=== PATIENT | male | born 1935 | race Caucasian/White ===

== ENCOUNTER 2020-12-06 09:38 | Outpatient (REF) | payer MEDICARE, SELFPAY ==
[2020-12-06 11:19] LABS: Hematocrit 41.9 % (42-52); Hemoglobin 13.6 g/dl (14.0-18.0); Mean Corpuscular HGB Conc 32.5 g/dl (31.0-36.0); Mean Corpuscular Hemoglobin 31.3 pg (27.0-33.0); Mean Corpuscular Volume 96.3 fL (80-98); Mean Platelet Volume 11.5 fL (9.4-12.4); Platelet Count 218 X10*3/uL (160-400); Red Blood Count 4.35 X10*6/uL (4.60-5.80); Red Cell Distribution Width 12.3 % (11.0-16.0); White Blood Count 4.1 X10*3/uL (4.8-10.8)
[2020-12-06 12:06] LABS: Alanine Aminotransferase 18 U/L (0-40); Albumin Level 4.2 g/dL (3.5-5.0); Alkaline Phosphatase 56 U/L (39-117); Anion Gap 12 (12-20); Aspartate Amino Transferase 21 U/L (5-37); Blood Urea Nitrogen 22 mg/dL (9-16); Calcium 8.8 mg/dL (8.4-10.2); Carbon Dioxide 31 mmol/L (22-29); Chloride 102 mmol/L (96-108); Cholesterol 272 mg/dL; Estimated Glomerular Filt Rate > 60; Glucose Fasting 88 mg/dL (60-99); HDL Cholesterol 49 mg/dL; LDL Cholesterol Calculated 199 mg/dl; Potassium 4.5 mmol/L (3.3-5.1); Sodium 140 mmol/L (135-145); Total Protein 6.6 g/dL (6.5-8.0); Triglycerides 123 mg/dL
== END 2020-12-06 09:39 | disposition home or self-care (01) ==
LOC: HO.MANLDS 09:38
PROVIDERS: PCP Internal Medicine; Visit Provider Internal Medicine
DX: E78.00 Pure hypercholesterolemia, unspecified (principal)
CPT/HCPCS: 36415; 80053; 80061; 85027

== ENCOUNTER 2022-03-11 14:15 | Outpatient (REF) | payer MEDICARE, SELFPAY ==
[2022-03-11 18:18] LABS: MANUAL DIFF FLAG NO
[2022-03-11 18:21] LABS: Basophils Percent Auto 0.3 % (0-2); Eosinophils Absolute Auto 0.1 X10*3/uL (0.0-0.4); Eosinophils Percent Auto 3.4 % (0-4); Hematocrit 40.1 % (42.0-52.0); Imm Gran Abs Auto 0.01 X10*3/uL (0.00-0.03); Imm Gran Pct Auto 0.3 % (0.0-0.4); Lymphocytes Absolute Auto 0.7 X10*3/uL (1.2-4.9); Lymphocytes Percent Auto 22.4 % (20-40); Mean Corpuscular HGB Conc 32.4 g/dl (31.0-36.0); Mean Corpuscular Hemoglobin 31.2 pg (27.0-33.0); Mean Corpuscular Volume 96.2 fL (80.0-98.0); Mean Platelet Volume 11.3 fL (9.4-12.4); Monocytes Absolute Auto 0.6 X10*3/uL (0.1-1.2); Monocytes Percent Auto 18.1 % (2-11); Neutrophils Absolute Auto 1.8 x10*3/uL (2.0-8.3); Neutrophils Percent Auto 55.5 % (45-73); Platelet Count 209 X10*3/uL (160-400); Red Blood Count 4.17 X10*6/uL (4.60-5.80); Red Cell Distribution Width 12.5 % (11.0-16.0); White Blood Count 3.3 X10*3/uL (4.8-10.8)
[2022-03-11 18:33] LABS: Alanine Aminotransferase 19 U/L (0-40); Alkaline Phosphatase 59 U/L (39-117); Anion Gap 12 (12-20); Aspartate Amino Transferase 24 U/L (5-37); Bilirubin Total 0.3 mg/dL (0.0-1.0); Blood Urea Nitrogen 24 mg/dL (9-16); Calcium 9.1 mg/dL (8.4-10.2); Carbon Dioxide 28 mmol/L (22-29); Chloride 105 mmol/L (96-108); Estimated Glomerular Filt Rate 57; Glucose Random 93 mg/dL (60-115); Potassium 4.6 mmol/L (3.3-5.1); Sodium 140 mmol/L (135-145); Total Protein 6.8 g/dL (6.5-8.0)
[2022-03-11 18:54] LABS: Thyroid Stimulating Hormone 2.82 uIU/mL (0.32-4.0)
[2022-03-12 05:16] LABS: Estimated Average Glucose 111 mg/dL; Hemoglobin A1c % 5.5 %
[2022-03-12 05:57] LABS: Vitamin B12 527 pg/mL (200-900)
== END 2022-03-11 14:16 | disposition home or self-care (01) ==
LOC: HO.MANLDS 14:15
PROVIDERS: PCP Internal Medicine; Visit Provider Internal Medicine
DX: R73.01 Impaired fasting glucose (principal); E03.9 Hypothyroidism, unspecified
CPT/HCPCS: 36415; 80053; 82306; 82607; 83036; 84443; 85025

== ENCOUNTER 2023-09-02 10:23 | Outpatient (REF) | payer MEDICARE, SELFPAY | END 2023-09-02 10:24 | disposition home or self-care (01) | LOC: HO.MANLDS 10:23 | PROVIDERS: Visit Provider Internal Medicine | DX: E03.9 Hypothyroidism, unspecified (principal) | CPT/HCPCS: 36415; 84443 ==

== ENCOUNTER 2023-12-02 11:43 | Outpatient (REF) | payer MEDICARE, SELFPAY ==
[2023-12-02 14:52] LABS: MANUAL DIFF FLAG NO
[2023-12-02 15:04] LABS: Basophils Percent Auto 0.7 % (0-2); Eosinophils Absolute Auto 0.2 X10*3/uL (0.0-0.4); Eosinophils Percent Auto 3.8 % (0-4); Hematocrit 40.9 % (42.0-52.0); Hemoglobin 13.1 g/dl (14.0-18.0); Imm Gran Abs Auto 0.02 X10*3/uL (0.00-0.03); Imm Gran Pct Auto 0.5 % (0.0-0.4); Lymphocytes Absolute Auto 0.9 X10*3/uL (1.2-4.9); Lymphocytes Percent Auto 19.7 % (20-40); Mean Corpuscular Volume 96.9 fL (80.0-98.0); Mean Platelet Volume 11.2 fL (9.4-12.4); Monocytes Absolute Auto 0.5 X10*3/uL (0.1-1.2); Monocytes Percent Auto 11.3 % (2-11); Neutrophils Absolute Auto 2.8 x10*3/uL (2.0-8.3); Platelet Count 264 X10*3/uL (160-400); Red Blood Count 4.22 X10*6/uL (4.60-5.80); Red Cell Distribution Width 12.6 % (11.0-16.0); White Blood Count 4.4 X10*3/uL (4.8-10.8)
[2023-12-02 15:18] LABS: Estimated Average Glucose 105 mg/dL; Hemoglobin A1c % 5.3 % (<6.0)
[2023-12-02 15:38] LABS: Iron 110 mcg/dL (45-160); Percent Iron Saturation 48 % (15-50); Total Iron Binding Capacity 231 mcg/dL (228-428); Unsaturated Iron Binding 121 ug/dL
[2023-12-02 15:44] LABS: Ferritin 297 ng/mL (20-250); Thyroid Stimulating Hormone 3.63 uIU/mL (0.32-4.0)
== END 2023-12-02 11:44 | disposition home or self-care (01) ==
LOC: HO.MANLDS 11:43
PROVIDERS: Visit Provider Internal Medicine
DX: D64.9 Anemia, unspecified (principal); E03.9 Hypothyroidism, unspecified; R73.01 Impaired fasting glucose
CPT/HCPCS: 36415; 82728; 83036; 83540; 84443; 85025

== ENCOUNTER 2024-09-14 09:20 | Outpatient (REF) | payer MEDICARE, SELFPAY ==
[2024-09-14 13:43] LABS: MANUAL DIFF FLAG NO
[2024-09-14 13:48] LABS: Basophils Percent Auto 0.9 % (0-2); Eosinophils Absolute Auto 0.2 X10*3/uL (0.0-0.4); Eosinophils Percent Auto 4.3 % (0-4); Imm Gran Abs Auto 0.01 X10*3/uL (0.00-0.03); Imm Gran Pct Auto 0.2 % (0.0-0.4); Lymphocytes Absolute Auto 1.1 X10*3/uL (1.2-4.9); Lymphocytes Percent Auto 25.7 % (20-40); Mean Corpuscular HGB Conc 32.5 g/dl (31.0-36.0); Mean Corpuscular Hemoglobin 31.4 pg (27.0-33.0); Mean Corpuscular Volume 96.6 fL (80.0-98.0); Mean Platelet Volume 11.3 fL (9.4-12.4); Monocytes Absolute Auto 0.6 X10*3/uL (0.1-1.2); Monocytes Percent Auto 13.2 % (2-11); Neutrophils Absolute Auto 2.4 x10*3/uL (2.0-8.3); Neutrophils Percent Auto 55.7 % (45-73); Platelet Count 222 X10*3/uL (160-400); Red Blood Count 4.14 X10*6/uL (4.60-5.80); Red Cell Distribution Width 12.9 % (11.0-16.0); White Blood Count 4.4 X10*3/uL (4.8-10.8)
[2024-09-14 14:18] LABS: Iron 73 mcg/dL (45-160); Percent Iron Saturation 32 % (15-50); Total Iron Binding Capacity 225 mcg/dL (228-428); Unsaturated Iron Binding 152 ug/dL
[2024-09-14 14:35] LABS: Ferritin 282 ng/mL (20-250)
== END 2024-09-14 09:21 | disposition home or self-care (01) ==
LOC: HO.MANLDS 09:20
PROVIDERS: Visit Provider Internal Medicine
DX: D50.9 Iron deficiency anemia, unspecified (principal)
CPT/HCPCS: 36415; 82728; 83540; 85025

== ENCOUNTER 2025-03-22 10:54 | Outpatient (REF) | payer MEDICARE, SELFPAY ==
--- OUTSIDE RECORDS SUMMARY | 2025-03-22 12:10 | XMS_ITS | Data Portability ---
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 MUST MEET 2 OUT OF 3 ELEMENTS: PROBLEMS, DATA OR RISK ELEMENT 1: PROBLEMS 1 OR MORE CHRONIC ILLNESS W/SEVERE EXACERBATION, PROGRESSION MAY REQUIRE HOSPITAL LEVEL CARE OR 1 ACUTE OR CHRONIC ILLNESS OR INJURY THAT POSES A THREAT TO LIFE OR BODILY FUNCTION ELEMENT 2: DATA: MUST MEET 2 OF 3 CATEGORIES CATEGORY 1 REVIEW OF PRIOR EXTERNAL NOTES REVIEW OF THE RESULTS ORDERING OF EACH TEST ASSESSMENT REQUIRING INDEPENDENT HISTORIAN(S) CATEGORY 2: INDEPENDENT INTERPRETATION OF TESTS BY ANOTHER PROVIDER/SPECIALI ST CATEGORY 3: DISCUSSION OF MGT OR TEST INTERPRETATION W/EXTERNAL PHYSICIAN/SPECIAL IST ELEMENT 3: RISK HIGH RISK OF MORBIDITY FROM ADDITIONAL DIAGNOSTIC TESTING OR TREATMENT PROVIDER MUST THOROUGHLY DOCUMENT EACH ELEMENT THAT IS COVERED Not available 03/11/2022 14:02:46 03/04/2023 03/04/2023 [id number] [place] [address]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 MEET 2 OUT OF 3 ELEMENTS: PROBLEMS, DATA OR RISK ELEMENT 1: PROBLEMS ADDRESSED 1 OR MORE CHRONIC ILLNESS WITH EXACERBATION OR 2 OR MORE STABLE CHRONIC ILLNESSES OR 1 UNDIAGNOSED NEW PROBLEM OR 1 ACUTE ILLNESS W/SYMPTOMS OR 1 ACUTE COMPLICATED INJURY ELEMENT 2: DATA MUST MEET 1 OF 3 CATEGORIES CATEGORY 1: REVIEW OF PRIOR EXTERNAL NOTES, REVIEW OF RESULTS, ORDERING OF EACH TEST, ASSESSMENT REQUIRING INDEPENDENT HISTORIAN OR CATEGORY 2: INDEPENDENT INTERPRETATION OF TESTS BY ANOTHER PHYSICIAN OR SPECIALIST OR CATEGORY 3: DISCUSSION OF MGT OR TEST INTERPRETATION W/EXTERNAL PHYSICIAN OR SPECIALIST ELEMENT 3: RISK RISK OF COMPLICATIONS AND/OR MORBIDITY OR MORTALITY OF PATIENT MANAGEMENT PROVIDER MUST THOROUGHLY DOCUMENT EACH ELEMENT THAT IS COVERED Not available 03/04/2023 14:37:12 10/31/2023 10/31/2023 [id number] [place] [address]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 MEET 2 OUT OF 3 ELEMENTS: PROBLEMS, DATA OR RISK ELEMENT 1: PROBLEMS ADDRESSED 1 OR MORE CHRONIC ILLNESS WITH EXACERBATION OR 2 OR MORE STABLE CHRONIC ILLNESSES OR 1 UNDIAGNOSED NEW PROBLEM OR 1 ACUTE ILLNESS W/SYMPTOMS OR 1 ACUTE COMPLICATED INJURY ELEMENT 2: DATA MUST MEET 1 OF 3 CATEGORIES CATEGORY 1: REVIEW OF PRIOR EXTERNAL NOTES, REVIEW OF RESULTS, ORDERING OF EACH TEST, ASSESSMENT REQUIRING INDEPENDENT HISTORIAN OR CATEGORY 2: INDEPENDENT INTERPRETATION OF TESTS BY ANOTHER PHYSICIAN OR SPECIALIST OR CATEGORY 3: DISCUSSION OF MGT OR TEST INTERPRETATION W/EXTERNAL PHYSICIAN OR SPECIALIST ELEMENT 3: RISK RISK OF COMPLICATIONS AND/OR MORBIDITY OR MORTALITY OF PATIENT MANAGEMENT PROVIDER MUST THOROUGHLY DOCUMENT EACH ELEMENT THAT IS COVERED Not available 10/31/2023 10:03:36 09/24/2024 09/24/2024 [address] [place] [address]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 MEET 2 OUT OF 3 ELEMENTS: PROBLEMS, DATA OR RISK ELEMENT 1: PROBLEMS ADDRESSED 1 OR MORE CHRONIC ILLNESS WITH EXACERBATION OR 2 OR MORE STABLE CHRONIC ILLNESSES OR 1 UNDIAGNOSED NEW PROBLEM OR 1 ACUTE ILLNESS W/SYMPTOMS OR 1 ACUTE COMPLICATED INJURY ELEMENT 2: DATA MUST MEET 1 OF 3 CATEGORIES CATEGORY 1: REVIEW OF PRIOR EXTERNAL NOTES, REVIEW OF RESULTS, ORDERING OF EACH TEST, ASSESSMENT REQUIRING INDEPENDENT HISTORIAN OR CATEGORY 2: INDEPENDENT INTERPRETATION OF TESTS BY ANOTHER PHYSICIAN OR SPECIALIST OR CATEGORY 3: DISCUSSION OF MGT OR TEST INTERPRETATION W/EXTERNAL PHYSICIAN OR SPECIALIST ELEMENT 3: RISK RISK OF COMPLICATIONS AND/OR MORBIDITY OR MORTALITY OF PATIENT MANAGEMENT PROVIDER MUST THOROUGHLY DOCUMENT EACH ELEMENT THAT IS COVERED Not available 09/24/2024 11:43:57 Plan of Treatment Reminders Order Date Submit Date Provider Last Modified By Organization Details Last Modified Time Details Appointments FOLLOW UP 15 2024 10:00A M DR WAHL Not available Not available Not available Lab lipid panel, blood 2023 024 [facility], [place], [address], 09/24/2024 11:45:44 CMP, serum or plasma 2023 024 [facility], [place], [address], 09/24/2024 11:45:44 TSH, serum or plasma 2023 024 [facility], [place], [address], 09/24/2024 11:45:44 CMP, serum or plasma 2022 023 [facility], [place], [address], 10/31/2023 09:53:49 hemoglobi n A1c, QN, blood 2022 023 [facility], [place], [address], 10/31/2023 09:53:49 TSH, serum or plasma 2022 023 [facility], [place], [address], 10/31/2023 09:53:22 CBC 2022 023 [facility], [place], [address], 12/03/2023 11:10:12 ferritin, serum or plasma 2022 023 [facility], [place], [address], 10/31/2023 09:53:22 iron + total iron-bind ing capacity (TIBC), serum 2022 023 [facility], [place], [address], 10/31/2023 09:53:22 HbA1c (hemoglob in A1c), blood 2021 022 [facility], [place], [address], 03/12/2022 11:12:58 CBC w/ auto diff 2021 [facility], [place], [address], 03/12/2022 11:12:57 CMP, serum or plasma 2021 [facility], [place], [address], 03/12/2022 11:12:57 vitamin D, 25-hydrox y, total, serum 2021 [facility], [place], [address], 03/12/2022 11:12:57 vitamin B12, serum 2021 [facility], [place], [address], 03/12/2022 11:12:57 TSH, serum or plasma 2021 [facility], [place], [address], 03/12/2022 11:12:58 Referral orthopedi c surgeon referral 2021 camila Coello MD, [address] [place] [address], [address], 03/18/2022 10:39:16 Procedures None recorded. Surgeries None recorded. Imaging None recorded. Medication Orders levothyro xine 50 mcg tablet 2020 [id number], [address] [place], [address], 11/06/2020 15:50:44 Patient TargetsNo targets recorded. Patient Instructions Encounter Date Encounter Id Patient Instructions Last Modified By Organization Details Last Modified Time 03/11/2022 [id number] prediabetes: car e instructions Not available 03/11/2022 14:01:01 hypothyroidism: care instructions Not available 03/11/2022 14:01:01 03/04/2023 [id number] hypothyroidism: care instructions Not available 03/04/2023 14:38:33 Reason for Referral Orthopedic Surgeon Referral for Bilateral acquired deformity of hands Referring Physician: Bernard Wahl, Internal Medicine, Encounter Date: 03/11/2022 Results Created Date Observation Date Name Description Value Unit Range Abnormal Flag Note LastModifiedBy Organization Detail LastModifiedTime Result Notes None recorded. 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 55820434700 742785 Active 2021 Bernard Wahl DO [address] [place] [address], [address], [facility] 2 13:49:45 Bursitis of left hip 556894182 Active 2021 Bernard Wahl [address], [address], [facility] 2 13:50:03 Iron deficien cy anemia 88256307 Active 2023 Bernard Wahl [address], [address], [facility] Internal [facility] 4 21:23:32 Hypercho lesterol emia 49491153 Active 2017 Christina mcdaniels [facility] 8 15:57:41 Anxiety 51523012 Active 2017 Tiburcio mcdaniels [facility] 8 15:58:05 History of depressi on 272498689 Active 2017 tiburcio mcdaniels [facility] Internal [facility] 8 15:58:19 Osteoart hritis 873037187 Active 2017 hands etc. 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, Thoracic hyperkyph osis and scoliosis with PT [facility] 8 16:00:24 Prostate specific antigen above referenc e range 145968078 Active 2017 [place] 8 16:01:43 Gastroes ophageal reflux disease 019047306 Active 2017 [facility] 8 16:01:51 Dysphagi a 33445073 Active 2017 esophagea l dysmotili ty (elizabeth) s/p dilated (shatzkir ing ) [facility] 8 16:05:19 Fatigue 85448481 Active 2017 [facility] 8 16:05:44 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 ) [facility] 8 16:12:56 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 38606068 Active 2017 [facility] 8 16:13:13 Degenera tion of lumbar interver tebral disc 36995659 Active 2017 [facility] 8 16:13:21 Disorder of lung 04028048 Active 2017 incidenta l stable post inflammat ory lung nodules 02/01/14 and 02/15/14 [facility] 8 16:14:23 Hypothyr oidism 58742750 Active 2017 Christina mcdaniels [facility] Internal [facility] 8 16:14:32 Anemia 894593402 Active 2017 Christina mcdaniels [facility] 8 16:14:40 Problem Notes None recorded. Procedures Surgical History Date Name Laterality Status Provider Name and Address Organization Details Recorded Time 018 Colonoscopy completed Christina Noriega [facility] 10/09/2018 08:38:14 018 Corticosteroid Injection completed Bernard Wahl, DO [address] [place] [address], [place], [address], [facility] 10/02/2018 12:31:53 Imaging Results None recorded. Procedure Notes None recorded. Medical Equipment None Reported. Allergies No known drug allergies Medications Name Sig Start Date Stop Date Status Note LastModified by Organization Details LastModified Time amoxicilli n 500 mg capsule 11/06 completed Not Available Not Available Not Available pravastati n 40 mg tablet TAKE 1 TABLET BY MOUTH EVERY DAY 09/06 completed Not Available Not Available Not Available citalopram 10 mg tablet TAKE 1 TABLET BY MOUTH EVERY DAY active Not Available Not Available No t Available omeprazole 40 mg capsule,de layed release 03/25 completed Not Available Not Available Not Available Zantac 150 mg tablet Take 1 tablet every day by oral route. 09/09 completed Not Available Not Available Not Available cefadroxil 500 mg capsule 10/06 completed Not Available Not Available Not Available alprazolam 0.25 mg tablet Take 1 tablet 3 times a day by oral route as needed. active has never neededr x'd by psych doctor Not Available Not Available Not Available Vitamin C 1,000 mg tablet Take 1 tablet every day by oral route. active Not Available Not Available No t Available pravastati n 10 mg tablet TAKE 1 TABLET BY MOUTH EVERY DAY active Not Available Not Available No t Available temazepam 15 mg capsule 09/06 completed Not Available Not Available Not Available tamsulosin 0.4 mg capsule TAKE 1 CAPSULE BY MOUTH EVERYDAY AT BEDTIME active Not Available Not Available No t Available dicyclomin e 20 mg tablet take 1 tablet by mouth four times a day as needed for pain 09/09 completed Not Available Not Available Not Available temazepam 30 mg capsule TK 1 C PO QD active Not Available Not Available No t Available doxycyclin e monohydrat e 100 mg capsule PLEASE SEE ATTACHED FOR DETAILED DIRECTIO NS active Not Available Not Available No t Available levothyrox ine 50 mcg tablet TAKE 1 TABLET BY MOUTH EVERY DAY active Not Available Not Available No t Available omeprazole 20 mg capsule,de layed release 40mg qd active Not Available Not Available Not Available mupirocin 2 % topical ointment 10/06 completed Not Available Not Available Not Available celecoxib 100 mg capsule TAKE 1 CAPSULE BY MOUTH TWICE A DAY NEEDED active Not Available Not Available No t Available oxycodone 5 mg tablet TAKE 0.5-1 TABLETS BY MOUTH EVERY 6 (SIX) HOURS NEEDED FOR MODERATE PAIN OR 4-6 active Not Available Not Available No t Available bupropion HCl SR 200 mg tablet,12 hr sustained- release TAKE 1 TABLET BY MOUTH TWICE A DAY active Not Available Not Available No t Available Iron (dried) 160 mg (50 mg iron) tablet,ext ended release Take 1 tablet every day by oral route. 10/31 completed Not Available Not Available Not Available psyllium active Not Available Not Avai lable Not Available FiberCon active Not Available Not Avai lable Not Available Miralax active Not Available Not Avail able Not Available multivitam in 1 po qd active Not Available Not Available Not Available Amitiza 24 mcg capsule 1 cap BID 02/10 completed Not Available Not Available Not Available Aller-Salomon 10 mg tablet Take 1 tablet every day by oral route. active Not Available Not Available No t Available Amitiza 8 mcg capsule Take 1 capsule twice a day by oral route for 30 days. 03/11 completed Not Available Not Available Not Available GaviLyte-G 236 gram-22.74 gram-6.74 gram-5.86 gram oral solution 02/10 completed Not Available Not Available Not Available Allergy Relief (fluticaso ne) 50 mcg/actuat ion nasal spray,susp ension [place] 2 sprays every day by intranas al route. active Not Available Not Available No t Available Linzess 72 mcg capsule 03/11 completed Not Available Not Available Not Available Fluad Quad 0280-9582( 65yr up)(PF) 60 mcg (15 mcg x 4)/0.5mL IM syringe PHARMACY ADMINIST ERED 11/06 completed Not Available Not Available Not Available Vitals Date Recorded Body height Body mass index (BMI) Body weight Body temperature Heart rate Oxygen saturation Oxygen saturation in Arterial blood by Pulse oximetry Systolic blood pressure Diastolic blood pressure Provider Name and Address Organization Details Last Updated DateTime 1 169.55 cm 24.2 kg/m2 15842.9 9 g 96.9 [degF] 77 /min 98 % 98 % 132 mm[Hg] 86 mm[Hg] Nilda [facility] 1 15:28:59 Date Recorded Body weight Heart rate Oxygen saturation Oxygen saturation in Arterial blood by Pulse oximetry Systolic blood pressure Diastolic blood pressure Provider Name and Address Organization Details Last Updated DateTime 2 13010.0 4 g 74 /min 100 % 100 % 130 mm[Hg] 82 mm[Hg] Bernard Wahl, DO [address] [place], [address] [place] [address] Internal [facility] 2 13:35:03 Date Recorded Body height Body mass index (BMI) Body weight Oxygen saturation Oxygen saturation in Arterial blood by Pulse oximetry Heart rate Systolic blood pressure Diastolic blood pressure Provider Name and Address Organization Details Last Updated DateTime 3 170.18 cm 23.3 kg/m2 12954.2 6 g 95 % 95 % 76 /min 120 mm[Hg] 72 mm[Hg] Donita Diego [facility] 3 14:02:58 Date Recorded Body height Body mass index (BMI) Body weight Systolic blood pressure Diastolic blood pressure Provider Name and Address Organization Details Last Updated DateTime 09/24/2024 170.18 cm 23.2 kg/m2 54131.67 g 110 mm[Hg] 80 mm[Hg] Donita [facility] 4 11:23:52 Social History Question Answer Notes LastModified by Organizat ion Details LastModified Time Tobacco Smoking Status Never Smoker Not Available [employer] 09/05/2020 03:36:24 What Was The Date Of Your Most Recent Tobacco Screening? 09/24/2024 [email or web address] Information not available 09/24/2024 Sex: Unknown Functional Status None recorded. Mental Status None recorded. Family History Nothing Reported. Medical History No medical history recorded. Immunizations Vaccine Type Date Status Note Provider Nam e and Address Organization Details Recorded Time COVID-19, mRNA, LNP-S, PF, 30 mcg/0.3 mL dose 1 completed Not Available [facility] 04/22/2023 14:23:30 COVID-19, mRNA, LNP-S, PF, 30 mcg/0.3 mL dose 1 completed Not Available [facility] 04/22/2023 14:23:30 COVID-19, mRNA, LNP-S, PF, 30 mcg/0.3 mL dose 1 completed Not Available [facility] 04/22/2023 14:23:30 Td(adult) unspecified formulation 6 completed Not Available [facility] 04/22/2023 14:23:30 Pneumococcal conjugate PCV 13 5 completed Not Available [facility] 04/22/2023 14:23:30 zoster live 9 completed Not Available [facility] 04/22/2023 14:23:30 Influenza, split virus, quadrivalent, preservative 8 completed Not Available [facility] 04/22/2023 14:23:30 influenza, unspecified formulation 4 completed Bernard Wahl DO [address] [place] [address], [address], [facility] 09/24/2024 11:47:41 Influenza, split virus, quadrivalent, preservative 9 completed Not Available [facility] 04/22/2023 14:23:30 Influenza, split virus, quadrivalent, preservative 0 completed Not Available [facility] 04/22/2023 14:23:29 Past Encounters Encounter ID Performer Location Encounter Start Date Encounter Closed Date Diagnosis/Indication Diagnosis SNOMED-CT Code Diagnosis ICD10 Code Diagnosis Note [id number] Bernard Wahl DO [facility] [address] [facility],[place] [address] 03/25/2018 11:12:41 03/25/2018 11:51:10 Hypercholesterolemia 45012283 E78.00 Gastroesop hageal reflux disease 416704952 K21.9 Impaired f asting glycemia 988354586 R73.01 Hypothyroidism 16915002 E03.9 Anemia 297893570 D64.9 [id number] Bernard Wahl [facility] [address] [facility],[place] [address] 09/09/2018 08:54:24 09/09/2018 11:08:11 Adult health examination 937070997 Z00.00 health care proxy/ki bernal will - plan to update Anemia 974618811 D64.9 stable Impaired f asting glycemia 488140412 R73.01 stable a1c Hypothyroidism 51923003 E03.9 stable tsh Hypercholesterolemia 136 88063 E78.00 Prostate s pecific antigen above reference range 390676138 R97.20 [id number] Bernard Wahl [facility] Internal [facility] [address] [place] [address] 09/23/2018 11:50:44 09/28/2018 09:00:27 Pain of shoulder region 53565548 M25.519 believe this represents a rotator tendon injury will need and xray if pos [place] [id number] Bernard Wahl [facility] Internal [facility] [address] [place] [address] 10/02/2018 12:12:14 10/02/2018 16:02:54 Shoulder joint pain 462561336 M25.519 cortisone inject [facility] [id number] Bernard Wahl [facility] Internal [facility] [address] [place] [address] 02/10/2019 11:29:23 02/10/2019 12:05:15 Hypothyroidism 99026576 E03.9 needs tsh Lordosis d eformity of spine 65821944 M40.50 has noted arthritis but lives with it Osteoarthritis 851236861 M19.90 hands are particular ly bad but is coping Prostate s pecific antigen above reference range 420794509 R97.20 followed by urologist Strain of tendon of medial thigh muscle 946833505 S76.812A will need a refer to PT as this has persisted now for months and is not abating Impaired f asting glycemia 699390842 R73.01 [id number] [facility] [address] [facility] [address],[place] [address] 09/06/2019 10:39:06 09/06/2019 11:16:21 Impaired fasting glycemia 959410461 R73.01 will rechk lab Hypothyroidism 16988597 E03.9 needs tsh Anxiety 25467467 F41.9 seems to be stable and is doing ok Hypercholesterolemia 136 43210 E78.00 [place] the pravastat [place] chk [id number] Bernard Wahl [facility] [address] [facility] [address],[place] [address] 10/06/2019 11:40:47 10/06/2019 12:02:32 Hypothyroidism 04784543 E03.9 tsh is 2.9 Hypercholesterolemia 136 58615 E78.00 LDL climbed to 200 so we will restart the med albeit on a lower dosage for better tolerance Anxiety 86399403 F41.9 seems to be stable and is doing ok Anemia 944137622 D64.9 is rechecked and is now almost nack to nl with hgb of 13.7 and hct of 41.7 [id number] Bernard Wahl [facility] [address] [facility] [place] [address] 11/06/2020 15:23:34 11/06/2020 16:01:25 Hypothyroidism 83855987 E03.9 tsh is 2.9 last year Impaired f asting glycemia 683487864 R73.01 will rechk lab but no evidence of DM Hypercholesterolemia 136 94768 E78.00 we will stop the med and will rech the cholestero l Gastroesop hageal reflux disease 225586049 K21.9 stable on omeprazole Prostate s pecific antigen above reference range 124150054 R97.[address] mcgrath at this time [id number] Bernard Wahl [facility] [address] [facility] [address] [address] 03/11/2022 13:29:11 03/11/2022 15:28:19 Active or passive immunization 864750917 Z23 Disorder of lung 8916655 1 J98.4 stable and doing good overall Impaired f asting glycemia 563924605 R73.01 will rechk lab but no evidence of DM Hypothyroidism 83169028 E03.9 tsh is 2.9 last year Bilateral acquired deformity of hands 0871588318 5185510 M20.001 M20.002 given the severity we are not sure if this will be fixable Shoulder joint pain 2679 35654 M25.519 cortisone inject will be ordered [id number] Bernard Wahl [facility] [address] [facility] [address],[place] [employer] [facility] [address] 03/04/2023 13:52:41 03/04/2023 15:02:31 Hypothyroidism 94027278 E03.9 tsh is 2.9 last year rech lab next visit Anemia 324236522 D64.9 is rechecked and is now almost nack to nl with hgb of 13.7 and hct of 41.7we will rechk lab next time Bilateral acquired deformity of hands 3310322276 6251427 M20.001 M20.002 did great with the surgery [id number] Bernard Wahl [facility] [address] [facility],[place] [facility] [place] [address] 10/31/2023 08:01:08 10/31/2023 15:37:16 Anemia 612611533 D64.9 is rechecked and is now almost nack to nl with hgb of 13.7 and hct of 41.7we will rechk lab next time Hypercholesterolemia 136 50011 E78.00 we will stop the med and will rech the cholestero l Hypothyroidism 83755007 E03.9 tsh is 2.5 last octob rech lab next month Impaired f asting glycemia 319470328 R73.01 will rechk lab but no evidence of DM [id number] Bernard Wahl [facility] [address] [facility] [address],[place] [facility] [place] [address] 09/24/2024 11:15:41 09/24/2024 11:53:51 Hypercholesterolemia 84261593 E78.00 we will stop the med and will rech the cholestero l Depression screening 171 020567 Z13.31 neg anxious ryan with driving Hypothyroidism 03076604 E03.9 tsh is 2.5 last octob rech lab next month Impaired f asting glycemia 268779194 R73.01 will rechk lab but no evidence of DM Health Concerns Section Related Observation LastModified by Organization Detai ls LastModified Time None Recorded Concern Status LastModified by Organization Details LastModified Time None Recorded Advance Directives Directive None Recorded Payers Encounter Date Sequence Insurance Name Policy Number Policy Licona Covered Member ID Licona Member ID Guarantor Name 11/06/2020 1 [place] [employer] Kade Terrell [id number] Kade Terrell 11/06/2020 2 [place] [id number] Kade Terrell [id number] Kade Terrell 03/11/2022 1 [place] [employer] Kade Terrell [id number] Kade Terrell 03/11/2022 2 [place] [id number] Kade Terrell [id number] Kade Terrell 03/04/2023 1 [place] Kade Terrell [id number] 25 Kade Terrell 03/04/2023 2 [place] [id number] Kade Terrell [id number] Kade Terrell 10/31/2023 1 [place] Kade Terrell [id number] Kade Terrell 10/31/2023 2 [place] [id number] Kade Terrell [id number] Kade Terrell 09/24/2024 1 [place] Kade Terrell [id number] Kade Terrell 09/24/2024 2 [place] [id number] Kade Terrell [id number] Kade Terrell Notes Date Note Type Note Provider Name and Address Organization Details Recorded Time 11/06/19 21 text/htm l here for rechk and is doing ok wants to lose wgt relates that his thumbs have been a prblem with all the arthritis and deformity but does not want a referral no cp no sob bpwels ok bladder ok sleep is good Bernard Wahl, DO [address] [place], [address], [facility], operated by [facility] 11/06/2020 15:52:46 03/11/20 22 text/htm l here for rechk oif various issuesrelates is having some issues with his abdomen and bad gasrelates when he urinates he also passes and he feels it makes a mess at timesalso his right shoulder is bothering him latelyhe has not had a mikayla inj in a long timealso his hands are very uncomfortable and the degree of deformity is severe he is wondering if the amount of time procrastinating getting them fixed has placed him beyond repair Bernard WahlDO [address] [place], [address], [facility], operated [facility] 03/11/2022 14:02:50 03/04/20 23 text/htm l relates that he is doing good states his hand are doing well after the surgeryno cp no sobhas some issues with memoryarthritis has been a nuisance from time to time Bernard Wahl, [address] [place], [address], [facility], operated [facility] 03/04/2023 14:38:56 10/31/20 23 text/htm l AnemiaReported bypatient.Timing:better Associated Symptoms:no shortness of breath; no chest pain; no abdominal pain; no nausea; no vomiting; no melena; no blood in stool; no weakness; no fatigue; no palpitations; no excessive sweating; normal nails; tolerant of cold; no nonfood cravings; no behavior problems; no symptoms of peripheral neuropathy; normal balance; no jaundice; no pallor; no weight lossHypothyroidReported bypatient.Associated Symptoms:no weakness; no lightheadedness; no fatigue; no cold intolerance; no constipation; no weight gain; no involuntary weight loss; normal mood; no menstrual irregularity; no pain; no dry/coarse skin; no edema; no deepening of the voice; no hoarseness; no goiter; no mass detected; no chest pain; no palpitations Treatment:taking medication as directed patient is evaluated via tele/video assessment per patient consent during current pandemicrelates sleeps wellappetite goodbowels ok;has been more forgetful at times Bernard Wahl DO [address] [place], [address], [facility], [facility] 10/31/2023 10:04:40 09/24/20 24 text/htm l here for ompromptu welness check doing ok overall except for anxiety at times ryan in a car here for rechk and is feeling ok overallbut has been having a lot of trouble with word searchingstates that he gets too anxious to drive a carhis is driving Bernard Wahl DO [address] [place], [address], [facility], [facility] 09/24/2024 11:48:04
--- OUTSIDE RECORDS SUMMARY | 2025-03-22 12:10 | XMS_ITS | Data Portability ---
Author Organization [facility], , [facility] Address [address] [place] [address] Assessment Encounter Date Assessment Date Assessment LastModified by Organization Details LastModified Time 06/10/2017 06/10/2017 RTC 1 yr CEE or prn jmandile Not available 06/10/2017 10:57:21 06/15/2018 06/15/2018 RTC 1 yr CEE or prn jmandile Not available 06/15/2018 09:22:20 07/27/2019 07/27/2019 RTC 1 yr CEE or prn jmandile Not available 07/27/2019 09:36:46 05/31/2021 05/31/2021 RTC 1 yr CEE or prn jmandile Not available 06/05/2021 13:09:24 Plan of Treatment Reminders Order Date Submit Date Provider Last Modified By Organization Details Last Modified Time Details Appointments None record ed. Lab None record ed. Referral None record ed. Procedures None record ed. Surgeries None record ed. Imaging None record ed. Medication Orders None record ed. Patient TargetsNo targets recorded. Patient InstructionsNo instructions recorded. Reason for Referral None Reported. 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 Procedures Surgical History Date Name Laterality Status Provider Name and Address Organization Details Recorded Time 06/10/2017 Refraction completed Henny Kinglathasteffany [facility] 06/10/2017 10:11:26 04/08/2016 Refraction completed Ginger Vijay [facility] 04/08/2016 14:14:56 Imaging Results None recorded. Procedure Notes None recorded. Medical Equipment None Reported. Allergies No known drug allergies Medications Name Sig Start Date Stop Date Status Note LastModified by Organization Details LastModified Time amoxicillin 500 mg capsule TAKE 1 CAPSULE BY MOUTH EVERY 8 HOURS NEEDED UNTIL FINISHED active Not Available Not Available No t Available pravastatin 40 mg tablet active Not Available Not Available Not Available citalopram 10 mg tablet TAKE 1 TABLET BY MOUTH EVERY DAY active Not Available Not Available No t Available sertraline 100 mg tablet active Not Available Not Available Not Available ciprofloxac in 500 mg tablet 06/15 completed Not Available Not Available Not Available omeprazole 40 mg capsule,del ayed release active Not Available Not Available Not Available bupropion HCl SR 100 mg tablet,12 hr sustained-r elease 06/10 completed Not Available Not Available Not Available cefadroxil 500 mg capsule active Not Available Not Available Not Available alprazolam 0.25 mg tablet active Not Available Not Available Not Available pravastatin 10 mg tablet TAKE 1 TABLET BY MOUTH EVERY DAY active Not Available Not Available No t Available temazepam 15 mg capsule active Not Available Not Available Not Available tamsulosin 0.4 mg capsule TAKE 1 CAPSULE BY MOUTH EVERYDAY AT BEDTIME active Not Available Not Available No t Available dicyclomine 20 mg tablet active Not Available Not Available Not Available temazepam 30 mg capsule TK 1 C PO QD active Not Available Not Available No t Available doxycycline monohydrate 100 mg capsule PLEASE SEE ATTACHED FOR DETAILED DIRECTION S active Not Available Not Available No t Available levothyroxi ne 50 mcg tablet TAKE 1 TABLET BY MOUTH EVERY DAY active Not Available Not Available No t Available sertraline 25 mg tablet 06/10 completed Not Available Not Available Not Available omeprazole 20 mg capsule,del ayed release active Not Available Not Available Not Available mupirocin 2 % topical ointment active Not Available Not Available Not Available celecoxib 100 mg capsule TAKE 1 CAPSULE BY MOUTH TWICE A DAY NEEDED active Not Available Not Available No t Available fluticasone propionate 50 mcg/actuati on nasal spray,suspe nsion active Not Available Not Available Not Available sertraline 50 mg tablet active Not Available Not Available Not Available Pneumovax-2 3 25 mcg/0.5 mL injection syringe TO BE ADMINISTE RED BY PHARMACIS T FOR IMMUNIZAT ION 06/15 completed Not Available Not Available Not Available bupropion HCl SR 200 mg tablet,12 hr sustained-r elease TAKE 1 TABLET BY MOUTH TWICE A DAY active Not Available Not Available No t Available Boostrix Tdap 2.5 Lf unit-8 mcg-5 Lf/0.5 mL intramuscul ar syringe inject 0.5 millilite r intramusc ularly 06/15 completed Not Available Not Available Not Available Amitiza 24 mcg capsule active Not Available Not Available Not Available Amitiza 8 mcg capsule TAKE 1 CAPSULE TWICE DAILY FOR ORALLY 90 active Not Available Not Available No t Available GaviLyte-G 236 gram-22.74 gram-6.74 gram-5.86 gram oral solution active Not Available Not Available Not Available Prevnar 13 (PF) 0.5 mL intramuscul ar syringe TO BE ADMINISTE RED BY PHARMACIS T FOR IMMUNIZAT ION active Not Available Not Available No t Available Linzess 290 mcg capsule active Not Available Not Available Not Available Fluzone High-Dose 6678-5359 (PF) 180 mcg/0.5 mL intramuscul ar syringe TO BE ADMINISTE RED BY PHARMACIS T FOR IMMUNIZAT ION active Not Available Not Available No t Available Linzess 72 mcg capsule PLEASE SEE ATTACHED FOR DETAILED DIRECTION S active Not Available Not Available No t Available Fluad 2017- 65yr up(PF)45 mcg(15 mcgx3)/0.5 mL intramuscul ar syringe TO BE ADMINISTE RED BY PHARMACIS T FOR IMMUNIZAT ION active Not Available Not Available No t Available Vitals None Recorded Social History None recorded. Functional Status None recorded. Mental Status None recorded. Family History Nothing Reported. Medical History No medical history recorded. Past Encounters Encounter ID Performer Location Encounter Start Date Encounter Closed Date Diagnosis/Indication Diagnosis SNOMED-CT Code Diagnosis ICD10 Code Diagnosis Note [id number] [facility], [address] [address] 12/07/2008 13:13:50 12/08/2008 08:52:18 [id number] Cherelle Ally Saba, OD [facility], [address] [address] 04/08/2016 13:11:12 04/08/2016 15:05:29 Nuclear senile cataract 656787926 H25.13 Hypermetropia 36402810 H 52.02 Presbyopia 79156087 H52. 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 not bothersome to pt. discussed AT/WC, observe for now. Presbyopia 30095622 H52. 4 ok to cont with OTC readers [id number] Cherelle Saba, OD [facility], [address] [address] 06/15/2018 08:23:28 06/15/2018 09:19:56 Cortical senile cataract 52355729 H25.013 mild OU, stable, not affecting ADL's, pt does not drive, monitor 1 yr or sooner with vision changes. Blepharitis 38101615 H01 .9 not bothersome to pt. observe. Presbyopia 23806584 H52. 4 ok to cont with OTC readers [id number] Cherelle Saba, OD [facility], [address] [address] 07/27/2019 08:51:49 07/27/2019 09:40:23 Cortical senile cataract 47069814 H25.013 mild OU, stable, not affecting ADL's, pt does not drive, monitor 1 yr or sooner with vision changes. Blepharitis 67555924 H01 .9 pt ed. recommend hot compresses with lid massage 1x per day and Artificial tears 2-4 x per day. Presbyopia 91852457 H52. 4 ok to cont with OTC readers [id number] Cherelle Saba, OD [facility], [address] [address] 05/31/2021 10:59:26 05/31/2021 11:52:24 Cortical senile cataract 84298206 H25.013 mild OU, stable, not affecting ADL's, pt does not drive, monitor 1 yr or sooner with vision changes. Presbyopia 79466731 H52. 4 ok to cont with OTC readers [id number] Cherelle Saba, OD [facility], [facility] [address] [place] [address] 02/03/2024 14:11:58 02/09/2024 12:22:41 Cortical senile cataract 55085808 H25.013 mild OU, stable, not affecting ADL's, pt does not drive, recommend annual eye exams. Presbyopia 87995828 H52. 4 ok to cont with OTC readers Health Concerns Section Related Observation LastModified by Organization Detai ls LastModified Time None Recorded Concern Status LastModified by Organization Details LastModified Time None Recorded Advance Directives Directive None Recorded Payers Encounter Date Sequence Insurance Name Policy Number Policy Licona Covered Member ID [place]icon[place] Member ID Guarantor Name 06/10/2017 2 [place] [id number] Kade Terrell [id number] Kade Terrell 06/10/2017 1 [place] Kade Terrell [id number] Kade Terrell 06/15/2018 2 [place] [id number] Kade Terrell [id number] Kade Terrell 06/15/2018 1 [place] Kade Terrell [id number] Kade Terrell 07/27/2019 2 [place] [id number] Kade Terrell [id number] Kade Terrell 07/27/2019 1 [place] Kade Terrell [id number] Kade Terrell 05/31/2021 2 [place] [id number] Kade Terrell [id number] Kade Terrell 05/31/2021 1 [place] [facility] SERVICES Kade Terrell [id number] Kade Terrell 02/03/2024 2 [place] [id number] Kade Terrell [id number] Kade Terrell 02/03/2024 1 [place] [facility] Kade Terrell [id number] Kade Terrell Notes Date Note Type Note Provider Name and Address Organization Details Recorded Time 06/10/2017 text/html CataractReported bypatient.Location:bi lateral Quality:painless Severity:mild Onset/Timing:gradualN otes:mild blur at distance without glasses, sometimes, most of the time it is clear. Cherelle Saba, OD [address] [place] [address], [phone], [facility] 06/10/2017 10:57:39 06/15/2018 text/html CataractReported bypatient.Location:bi lateral Quality:painless Severity:mild Onset/Timing:gradual Cherelle Saba, OD [address] [place] [address], [address], [facility] 06/15/2018 09:23:25 07/27/2019 text/html CataractReported bypatient.Location:bi lateral Quality:painless Severity:mild Onset/Timing:gradual Context:decreased vision(at distance); when reading; watching tv; Pt no longer drives Modifying Factors:nothing improves Cherelle Saba, OD [address] [place] [address], [address], [facility] 07/27/2019 09:40:11 05/31/2021 text/html CataractReported bypatient.Location:bi lateral Quality:painless Severity:mild Onset/Timing:gradual Context:watching tv (seems blurrier at times) Modifying Factors:nothing improves Cherelle Saba, OD [address] [place] [address] [place], [address], [facility] 06/05/2021 13:10:06 02/03/2024 text/html CataractReported bypatient.Location:bi lateral Quality:painless Severity:mild Onset/Timing:gradual No Va complaints. not driving. Cherelle Saba, OD [address] [place] [address], [address], [facility] 02/03/2024 15:24:41
[2025-03-22 13:18] LABS: MANUAL DIFF FLAG NO
[2025-03-22 13:26] LABS: Basophils Percent Auto 0.5 % (0-2); Eosinophils Absolute Auto 0.1 X10*3/uL (0.0-0.4); Eosinophils Percent Auto 3.2 % (0-4); Hematocrit 37.4 % (42.0-52.0); Hemoglobin 12.3 g/dl (14.0-18.0); Imm Gran Abs Auto 0.01 X10*3/uL (0.00-0.03); Imm Gran Pct Auto 0.3 % (0.0-0.4); Lymphocytes Absolute Auto 0.7 X10*3/uL (1.2-4.9); Lymphocytes Percent Auto 19.4 % (20-40); Mean Corpuscular HGB Conc 32.9 g/dl (31.0-36.0); Mean Corpuscular Hemoglobin 31.1 pg (27.0-33.0); Mean Corpuscular Volume 94.7 fL (80.0-98.0); Mean Platelet Volume 11.1 fL (9.4-12.4); Monocytes Absolute Auto 0.4 X10*3/uL (0.1-1.2); Monocytes Percent Auto 9.6 % (2-11); Neutrophils Absolute Auto 2.5 x10*3/uL (2.0-8.3); Platelet Count 217 X10*3/uL (160-400); Red Blood Count 3.95 X10*6/uL (4.60-5.80); Red Cell Distribution Width 12.7 % (11.0-16.0); White Blood Count 3.8 X10*3/uL (4.8-10.8)
[2025-03-22 13:54] LABS: Iron 111 mcg/dL (45-160); Percent Iron Saturation 50 % (15-50); Total Iron Binding Capacity 222 mcg/dL (228-428); Unsaturated Iron Binding 111 ug/dL
[2025-03-22 14:11] LABS: Ferritin 268 ng/mL (20-250)
== END 2025-03-22 10:55 | disposition home or self-care (01) ==
LOC: HO.MANLDS 10:54
PROVIDERS: Visit Provider Internal Medicine
DX: D50.9 Iron deficiency anemia, unspecified (principal)
CPT/HCPCS: 36415; 82728; 83540; 85025

== ENCOUNTER 2025-08-05 12:03 | Outpatient (REF) | payer MEDICARE, SELFPAY ==
--- OUTSIDE RECORDS SUMMARY | 2025-08-05 12:58 | XMS_ITS | Encounter Summary ---
Author Organization [facility] Address [address] [facility] [address] [place] [address] Phone Care Team Providers Care Residential Remodeling Subcontractor Name Role Phone Bernard Araiza DO Primary Care Provider Encounter Details Date Type Department Care Team (Late st Contact Info) Description 09/29/2018 Ancillary Orders Virtual Department [address] [place] [address] Bernard Araiza DO [address] [place] [address] [email or web address] Shoulder pain, unspecified chronicity, unspecified laterality Social History Tobacco Use Types Packs/Day Years Used Date Smoking Tobacco: Never Assessed Sex and Gender Information Value Date Recorded Sex Assigned at Not on file Legal Sex Male 10:14 PM EDT Gender Identity Not on file Sexual Orientation Not on file documented as of this encounter Plan of Treatment Not on file documented as of this encounter Visit Diagnoses Diagnosis Shoulder pain, unspecified chronicity, unspecified laterality documented in this encounter Care Teams Residential Remodeling Subcontractor Relationship Specialty Start Date End Date Bernard Araiza DO PCP - General 11/06/17 documented as of this encounter Additional Source Comments The information contained in this document represents components of the legal health record. It is not the complete legal health record[facility]
--- OUTSIDE RECORDS SUMMARY | 2025-08-05 12:58 | XMS_ITS | Data Portability ---
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) [facility] MODERATE MUST MEET 2 OUT OF 3 [...] COVERED Not available 10/31/2023 10:03:36 09/24/2024 09/24/2024 [address] [place] [address] (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) [facility]DM MODERATE MUST MEET 2 OUT OF [...] THAT IS COVERED Not available 09/24/2024 11:43:57 03/23/2025 03/23/2025 [address] [place] [address] (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) MDM MODERATE MUST MEET 2 OUT OF [...] EACH ELEMENT THAT IS COVERED Not available 03/23/2025 10:25:42 08/05/2025 08/05/2025 [address] [place] [address] (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) MDM HIGH MUST MEET 2 OUT OF [...] EACH ELEMENT THAT IS COVERED Not available 08/05/2025 11:48:56 Plan of Treatment Reminders Order Date Submit Date Provider Last Modified By Organization Details Last Modified Time Details Appointments FOLLOW UP 15 2024 11:15A M DR WAHL Not available Not available Not available FOLLOW UP 15 2025 10:15A M DR WAHL Not available Not available Not available Lab TSH, serum or plasma 2024 025 [facility], [place], [address], 08/05/2025 11:53:19 CBC w/ auto diff 2024 025 [facility], [place], [address], 08/05/2025 11:53:18 iron + TIBC + ferritin, serum 2024 025 [facility], [place], [address], 08/05/2025 11:53:19 CMP, serum or plasma 2024 025 [facility], [place], [address], 08/05/2025 11:53:19 lipid panel, blood 2023 024 [facility], [place], [address], 09/24/2024 11:45:44 CMP, serum or plasma 2023 024 [facility], [place], [address], 09/24/2024 11:45:44 TSH, serum or plasma 2023 024 [facility], [place], [address], 09/24/2024 11:45:44 CMP, serum or plasma 2022 023 [facility], [place], [address], 10/31/2023 09:53:49 hemoglobi n A1c, QN, blood 2022 023 [facility], [place], [address], 10/31/2023 09:53:49 TSH, serum or plasma 2022 023 [facility], [place], [address], 10/31/2023 09:53:22 CBC 2022 023 [facility], [place], [address], 12/03/2023 11:10:12 ferritin, serum or plasma 2022 023 [facility], [place], [address], 10/31/2023 09:53:22 iron + total iron-bind ing capacity (TIBC), serum 2022 023 [facility], [place], [address], 10/31/2023 09:53:22 Referral dermatolo gist referral 2024 025 [facility], [address], [place], [address], 08/05/2025 11:55:58 podiatris t referral 2024 025 camila Cornell DPM, [address] [facility], [place], [address], 04/20/2025 09:22:30 Procedures None recorded. Surgeries None recorded. Imaging None recorded. Medication Orders hydrocort isone 2.5 % topical cream with perineal applicato r 2024 025 [facility], [address] [place], [address], 08/05/2025 11:51:37 Patient TargetsNo targets recorded. 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 Problems Name Problem SNOMED Code Status Onset Date Resolution Date Notes Provider Name and Address Organization Details Recorded Time Hypercho lesterol emia 94310707 Completed 201703/23/2025 Bernard Wahl, DO [address] [facility], [place], [address], [facility] Jose Ardmoremery [facility] 5 10:27:39 Anxiety 95780558 Active 2017 MAY Shrestha [facility] 8 15:58:05 History of depressi on 942283798 Active 2017 MAY Shrestha Manhan [facility] 8 15:58:19 Osteoart hritis 420578404 Active 2017 hands etc. 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 , Thoracic hyperkyp hosis and scoliosi s with PT Christinaregina mcdaniels [facility] 8 16:00:24 Prostate specific antigen above referenc e range 705048138 Active 2017 [place] [facility] 8 16:01:43 Gastroes ophageal reflux disease 733854924 Active 2017 [facility] 8 16:01:51 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 (elizabeth) s/p dilated (shatzki ring ) [facility] 8 16:05:19 Fatigue 02970054 Active 2017 Christina mcdaniels [facility] 8 16:05:44 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 0923976368 9611585 Active 2021 Bernard Wahl DO [address] [place] [address], [address], [facility] 2 13:49:45 Bursitis of left hip 066249594 Active 2021 Bernard Wahl DO [address] [place] [address], [address], [facility] 2 13:50:03 Iron deficien cy anemia 27665746 Active 2023 Bernard Wahl DO [address] [place] [address], [address], [facility] 5 11:46:48 Onychomy cosis of toenails 913009854 Active 2024 Bernard Wahl DO [address] [place] [address], [address], [facility] 5 10:30:17 Chronic constipa tion 567586380 Active 2024 Bernard Wahl DO [address] [place], [address], [facility] 11:50:07 Bleeding hemorrho ids 36514758 Active 2024 Bernard Wahl, DO [address] [place] [address], [address], [facility] 11:50:30 Internal hemorrho ids grade I 411312563 Active 2024 Bernard Vicente Teodora, DO [address] [place] [address], [address], [facility] 11:50:51 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 Procedures Surgical History Date Name Laterality Status Provider Name and Address Organization Details Recorded Time 018 Colonoscopy completed Christina Noriega [facility] 10/09/2018 08:38:14 018 Corticosteroid Injection completed Bernard Wahl DO [address] [place] [address], [address], [facility] 10/02/2018 12:31:53 Imaging Results None [...] Available omeprazole 40 mg capsule,de layed release Take 1 capsule every day by oral route. active Not Available Not Available No t Available Zantac 150 mg tablet Take 1 tablet every day by oral route. 09/09 completed Not Available Not Available Not Available cefadroxil 500 mg capsule 10/06 completed Not Available Not Available Not Available hydrocorti sone 2.5 % topical cream with perineal applicator APPLY A THIN LAYER TO THE AFFECTED AREA(S) BY TOPICAL ROUTE 2-4 TIMESDAI LY 2024 active Not Available Not Available Not Avai lable alprazolam 0.25 mg tablet Take 1 tablet [...] 1 CAPSULE BY MOUTH EVERYDAY AT BEDTIME 08/05 completed Not Available Not Available Not Available dicyclomin e 20 mg tablet take 1 tablet by mouth four times a day as needed for pain 09/09 completed Not Available Not Available Not Available temazepam 30 mg capsule TK 1 C PO QD active Not Available Not Available No t Available doxycyclin e monohydrat e 100 mg capsule PLEASE SEE ATTACHED FOR DETAILED DIRECTIO NS 08/05 completed Not Available Not Available Not Available levothyrox ine 50 mcg tablet TAKE 1 TABLET BY MOUTH EVERY DAY 2024 active Not Available Not Available Not Avai lable omeprazole 20 mg capsule,de layed release 40mg qd 08/05 completed Not Available Not Available Not Available mupirocin 2 % topical ointment 10/06 completed Not Available Not Available Not Available celecoxib 100 mg capsule TAKE 1 CAPSULE BY MOUTH TWICE A DAY NEEDED active Not Available Not Available No t Available oxycodone 5 mg tablet TAKE 0.5-1 TABLETS BY MOUTH EVERY 6 (SIX) HOURS NEEDED FOR MODERATE PAIN OR 4-6 08/05 completed Not Available Not Available Not Available bupropion HCl SR 200 mg tablet,12 hr sustained- release TAKE 1 TABLET BY MOUTH TWICE A DAY 08/05 completed Not Available Not Available Not Available bupropion HCl XL 300 mg 24 hr tablet, extended release Take 1 tablet every day by [...] 1 tablet every day by oral route. 08/05 completed Not Available Not Available Not Available Amitiza 8 mcg capsule Take 1 capsule twice a day by oral route for 30 days. 03/11 completed Not Available Not Available Not Available GaviLyte-G 236 gram-22.74 gram-6.74 gram-5.86 gram oral solution 02/10 completed Not Available Not Available Not Available Allergy Relief (fluticaso ne) 50 mcg/actuat ion nasal spray,susp ension [place] 2 sprays every day by intranas al route. active Not Available Not Available No t Available Linzess 72 mcg capsule 03/11 completed Not Available Not Available Not Available Fluad Quad 0770-5950( 65yr up)(PF) 60 mcg (15 mcg x 4)/0.5mL IM syringe PHARMACY ADMINIST ERED 11/06 completed Not Available Not Available Not Available Vitals Date Recorded Body height Body mass index (BMI) Body weight Oxygen saturation Oxygen saturation in Arterial blood by Pulse oximetry Heart rate Systolic And Diastolic Provider Name and Address Organization Details Last Updated DateTime 3 170.18 cm 23.3 kg/m2 48254.2 6 g 95 % 95 % 76 /min 120/72 mm[Hg] Donita Driscoll [facility] 3 14:02:58 Date Recorded Body height Body mass index (BMI) Body weight Heart rate Oxygen saturation Oxygen saturation in Arterial blood by Pulse oximetry Systolic And Diastolic Provider Name and Address Organization Details Last Updated DateTime 5 170.18 cm 21.8 kg/m2 74007.0 6 g 62 /min 97 % 97 % 116/74 mm[Hg] Mi Fang [facility] 5 10:01:31 Date Recorded Body weight Oxygen saturation Oxygen saturation in Arterial blood by Pulse oximetry Heart rate Systolic And Diastolic Provider Name and Address Organization Details Last Updated DateTime 5 44621.1 5 g 99 % 99 % 73 /min 110/70 mm[Hg] Mi Fang [facility] 5 11:29:07 Date Recorded Body height Body mass index (BMI) Body weight Systolic And Diastolic Provider Name and Address Organization Details Last Updated DateTime 09/24/2024 170.18 cm 23.2 kg/m2 75029.67 g 110/80 mm[Hg] Donita Kraftmond [facility] 09/24/2024 11:23:52 Social History Question Answer Notes LastModified by Organizat ion Details LastModified Time Tobacco Smoking Status Never Smoker Not Available [facility] 09/05/2020 03:36:24 What Was The Date Of Your Most Recent Tobacco Screening? 08/05/2025 [email or web address] Information not available 08/05/2025 Sex: Unknown Functional Status None recorded. Mental Status None recorded. Family History Nothing Reported. Medical History No medical history recorded. Immunizations Vaccine Type Date Status Note Provider Nam e and Address Organization Details Recorded Time COVID-19, mRNA, LNP-S, PF, 30 mcg/0.3 mL dose 1 completed Not Available [facility] 04/22/2023 14:23:30 COVID-19, mRNA, LNP-S, PF, 30 mcg/0.3 mL dose 1 completed Not Available [facility] 04/22/2023 14:23:30 COVID-19, mRNA, LNP-S, PF, 30 mcg/0.3 mL dose 1 completed Not Available [facility] 04/22/2023 14:23:30 Td(adult) unspecified formulation 6 completed Not Available [facility] 04/22/2023 14:23:30 Pneumococcal conjugate PCV 13 5 completed Not Available [facility] 04/22/2023 14:23:30 zoster live 9 completed Not Available [facility] 04/22/2023 14:23:30 Influenza, split virus, quadrivalent, preservative 8 completed Not Available [facility] 04/22/2023 14:23:30 influenza, unspecified formulation 4 completed Bernard Wahl DO [address] [place] [address], [address], [facility] 09/24/2024 11:47:41 SARS-COV-2 (COVID-19) vaccine, UNSPECIFIED 5 completed [facility] 04/20/2025 08:32:24 Influenza, split virus, quadrivalent, preservative 9 completed Not Available [facility] 04/22/2023 14:23:30 Influenza, split virus, quadrivalent, preservative 0 completed Not Available [facility] 04/22/2023 14:23:29 Past Encounters Encounter ID Performer Location Encounter Start Date Encounter Closed Date Diagnosis/Indication Diagnosis SNOMED-CT Code Diagnosis ICD10 Code Diagnosis IMO Codes Diagnosis Note [id number] Bernard Wahl [facility] Internal [facility] [address] [facility],[place] [address] 03/25/2018 11:12:41 03/25/2018 11:51:10 Hypercholesterolemia 26501101 E78.00 Gastroesop hageal reflux disease 318478621 K21.9 Impaired f asting glycemia 093380127 R73.01 Hypothyroidism 47559344 E03.9 Anemia 578464580 D64.9 [id number] Bernard Wahl [facility] [address] [facility],[place] [address] 09/09/2018 08:54:24 09/09/2018 11:08:11 Adult health examination 723930045 Z00.00 health care proxy/ki bernal will - plan to update Anemia 472624955 D64.9 stable Impaired f asting glycemia 952956120 R73.01 stable a1c Hypothyroidism 64666137 E03.9 stable tsh Hypercholesterolemia 136 53993 E78.00 Prostate s pecific antigen above reference range 084205794 R97.20 [id number] Bernard Vicente Teodora [facility] Internal Medicine [address] [facility] [place] [address] 09/23/2018 11:50:44 09/28/2018 09:00:27 Pain of shoulder region 61018724 M25.519 believe this represents a rotator tendon injury will need and xray if pos [place] [id number] Bernard Jules Wahl [facility] Internal Medicine [address] [facility] [place], [place] [address] 10/02/2018 12:12:14 10/02/2018 16:02:54 Shoulder joint pain 640242912 M25.519 cortisone inject [facility] [id number] Bernard Wahl [facility] Internal [facility] [address] [facility], [place] [address] 02/10/2019 11:29:23 02/10/2019 12:05:15 Hypothyroidism 47507700 E03.9 needs tsh Lordosis d eformity of spine 18930285 M40.50 has noted arthritis but lives with it Osteoarthritis 557509535 M19.90 hands are particular ly bad but is coping Prostate s pecific antigen above reference range 953388509 R97.20 followed by urologist Strain of tendon of medial thigh muscle 374874687 S76.812A will need a refer to PT as this has persisted now for months and is not abating Impaired f asting glycemia 488682328 R73.01 [id number] Bernard Wahl [facility] Internal Medicine [address] [facility],[place] [address] 09/06/2019 10:39:06 09/06/2019 11:16:21 Impaired fasting glycemia 537862602 R73.01 will rechk lab Hypothyroidism 85296625 E03.9 needs tsh Anxiety 17469368 F41.9 seems to be stable and is doing ok Hypercholesterolemia 136 22814 E78.00 [place]oll [place] the pravastat [place] chk [id number] Bernard Wahl [facility] Internal Medicine [address] [facility],[place] [address] 10/06/2019 11:40:47 10/06/2019 12:02:32 Hypothyroidism 77625025 E03.9 tsh is 2.9 Hypercholesterolemia 136 77343 E78.00 LDL climbed to 200 so we will restart the med albeit on a lower dosage for better tolerance Anxiety 56819169 F41.9 seems to be stable and is doing ok Anemia 634686641 D64.9 is rechecked and is now almost nack to nl with hgb of 13.7 and hct of 41.7 [id number] Bernard Wahl [facility] Internal Medicine [address] [facility],[place] [address] 11/06/2020 15:23:34 11/06/2020 16:01:25 Hypothyroidism 95526990 E03.9 tsh is 2.9 last year Impaired f asting glycemia 356620344 R73.01 will rechk lab but no evidence of DM Hypercholesterolemia 136 72536 E78.00 we will stop the med and will rech the cholestero l Gastroesop hageal reflux disease 583175109 K21.9 stable on omeprazole Prostate s pecific antigen above reference range 023573762 R97.[address] mcgrath at this time [id number] Bernard Wahl [facility] Internal Medicine [address] [facility],[place] [address] 03/11/2022 13:29:11 03/11/2022 15:28:19 Active or passive immunization 629167771 Z23 Disorder of lung 4661532 1 J98.4 stable and doing good overall Impaired f asting glycemia 570871645 R73.01 will rechk lab but no evidence of DM Hypothyroidism 50347633 E03.9 tsh is 2.9 last year Bilateral acquired deformity of hands 4200762264 6265573 M20.001 M20.002 given the severity we are not sure if this will be fixable Shoulder joint pain 9869 74989 M25.519 cortisone inject will be ordered [id number] Bernard Wahl [facility] Internal Medicine [address] [facility],[place] [address] 03/04/2023 13:52:41 03/04/2023 15:02:31 Hypothyroidism 19750909 E03.9 tsh is 2.9 last year rech lab next visit Anemia 600536462 D64.9 is rechecked and is now almost nack to nl with hgb of 13.7 and hct of 41.7we will rechk lab next time Bilateral acquired deformity of hands 0160100711 0320437 M20.001 M20.002 did great with the surgery [id number] Bernard Wahl [facility] Internal [facility] [address] [facility],[place] [address] 10/31/2023 08:01:08 10/31/2023 15:37:16 Anemia 907248350 D64.9 is rechecked and is now almost nack to nl with hgb of 13.7 and hct of 41.7we will rechk lab next time Hypercholesterolemia 136 96260 E78.00 we will stop the med and will rech the cholestero l Hypothyroidism 49780395 E03.9 tsh is 2.5 last octob rech lab next month Impaired f asting glycemia 840819773 R73.01 will rechk lab but no evidence of DM [id number] Bernard Wahl [facility] Internal [facility] [address] [facility],[place] [address] 09/24/2024 11:15:41 09/24/2024 11:53:51 Hypercholesterolemia 37312550 E78.00 we will stop the med and will rech the cholestero l Depression screening 171 143875 Z13.31 neg anxious ryan with driving Hypothyroidism 35324471 E03.9 tsh is 2.5 last octob rech lab next month Impaired f asting glycemia 469734353 R73.01 will rechk lab but no evidence of DM [id number] [facility] [address] [facility] [place] [address] 03/23/2025 09:52:48 03/23/2025 10:47:35 Depression screening 015935451 Z13.31 neg anxious ryan with driving Hypercholesterolemia 136 13675 E78.00 we will stop the med and will rech the cholestero l Hypothyroidism 12243089 E03.9 tsh is 2.5 last octob rech lab next month Impaired f asting glycemia 939809488 R73.01 will rechk lab but no evidence of DM Anemia 374965035 D64.9 rechk cbc and iron levels are stable and will follow as necess Onychomyco sis of toenails 443422237 B35.1 [id number] Bernard Wahl DO [facility] Internal Medicine [address] [facility],[place] [address] 08/05/2025 11:15:12 08/05/2025 11:57:39 Depression screening 371762126 Z13.31 neg anxious ryan with driving Hypothyroidism 47439623 E03.9 tsh is 2.5 last octob rech lab next month Impaired f asting glycemia 824619592 R73.01 will rechk lab but no evidence of DM Iron defic iency anemia 83261006 D50.9 Chronic constipation 236 685783 K59.09 702021 will increase water and also try miralax cont stool softener and fibercon Bleeding hemorrhoids 515 65191 K64.9 4319 Basal cell carcinoma of face 959412431 C44.555 [id number] Health Concerns Section Related Observation LastModified by Organization Detai ls LastModified Time None Recorded Concern Status LastModified by Organization Details LastModified Time None Recorded Advance Directives Directive None Recorded Payers Insurance Date Sequence Insurance Name Policy Number Policy Licona Covered Member ID Licona Member ID Guarantor Name 08/04/2025 1 [place] [employer] Kade Terrell [id number] Kade Terrell 08/03/2025 2 [place] [id number] Kade Terrell [id number] Kade Terrell Notes Date Note Type Note Provider Name and Address Organization Details Recorded Time 3 text/html ROS as noted in the HPI relates that he is doing good states his hand are doing well after the surgeryno cp no sobhas some issues with memoryarthritis has been a nuisance from time to time Bernard Wahl DO [address] [facility], [place], [address], [facility] 03/04/2023 14:38:56 3 text/html HypothyroidReported by PatientHPIFor associated symptoms, patient reportsno weakness,no lightheadedness,no fatigue,no cold intolerance,no constipation,no weight gain,no involuntary weight loss,normal mood,no menstrual irregularity,no pain,no dry/coarse skin,no edema,no deepening of the voice,no hoarseness,no goiter,no mass detected,no chest pain, andno palpitations. For treatment, patient reportstaking medication as directed. AnemiaReported by PatientHPIFor timing, patient reportsbetter. For associated symptoms, patient reportsno shortness of breath,no chest pain,no abdominal pain,no nausea,no vomiting,no melena,no blood in stool,no weakness,no fatigue,no palpitations,no excessive sweating,normal nails,tolerant of cold,no nonfood cravings,no behavior problems,no symptoms of peripheral neuropathy,normal balance,no jaundice,no pallor, andno weight loss.ROS as noted in the HPI patient is evaluated via tele/video assessment per patient consent during current pandemicrelates sleeps wellappetite goodbowels ok;has been more forgetful at times Bernard MarySuyapa Wahl DO [address] [place], [address], [facility] Internal Medicine 10/31/2023 10:04:40 4 text/html ROS as noted in the HPI here for ompromptu welness check doing ok overall except for anxiety at times ryan in a car here for rechk and is feeling ok overallbut has been having a lot of trouble with word searchingstates that he gets too anxious to drive a carhis is driving Bernard Vicente DO Teodora [address] [place], [address], [facility] 09/24/2024 11:48:04 5 text/html ROS as noted in the HPI relates he is doing ok overall upset here for ompromptu welness check doing ok overall except for anxiety at times ryan in a car here for rechk and is feeling ok overallbut has been having a lot of trouble with word searchingstates that he gets too anxious to drive a carhis is driving Bernard Vicente DO Teodora [address] [place], [address], [facility] 03/23/2025 10:32:13 5 text/html ROS as noted in the HPI relates here for few thingsstates less steady on feet not fallinghas been forgetful and is word searchinghe has a good memory overall but conversation is sometimes difficult due to the word searchingrelates had a great vacation at the [facility] no sob has been troubled with constipation Bernard Wahl, DO [address] [facility], [place], [address], [facility] 08/05/2025 11:57:37
--- OUTSIDE RECORDS SUMMARY | 2025-08-05 12:58 | XMS_ITS | Encounter Summary ---
Author Organization [facility] Address [address] [facility] [address] [place] [address] Phone Care Team Providers Care Board Lining Machine Operator Name Role Phone Bernard Araiza DO Primary Care Provider [phone] Encounter Details Date Type Department Care Team (Late st Contact Info) Description 07/19/2022 Prep for Surgery [facility] Orthopedics & Sports Medicine [address] [place] [address] Eva Coello MD [address] [place] [address] Orthopedics & Sports Medicine, [facility] [place] [address] Social History Tobacco Use Types Packs/Day Years Used Date Smoking Tobacco: Never Smokeless Tobacco: Never Alcohol Use Standard Drinks/Week Comments No 0 (1 standard drink = 0.6 oz pur e alcohol) Sex and Gender Information Value Date Recorded Sex Assigned at Not on file Legal Sex Male 10:14 PM EDT Gender Identity Not on file Sexual Orientation Not on file documented as of this encounter Plan of Treatment Not on file documented as of this encounter Visit Diagnoses Not on filedocumented in this encounter Care Teams Board Lining Machine Operator Relationship Specialty Start Date End Date Bernard Araiza DO PCP - General 11/06/17 documented as of this encounter Additional Source Comments The information contained in this document represents components of the legal health record. It is not the complete legal health record.[facility]
--- OUTSIDE RECORDS SUMMARY | 2025-08-05 12:58 | XMS_ITS | Continuity of Care Document ---
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) MDM HIGH MUST MEET 2 OUT OF [...] Lab TSH, serum or plasma 2024 025 [facility], [place], [address], 08/05/2025 11:53:19 CBC w/ auto diff 2024 025 [facility], [place], [address], 08/05/2025 11:53:18 iron + TIBC + ferritin, serum 2024 [facility] [place], [address], 08/05/2025 11:53:19 CMP, serum or plasma 2024 025 [facility] [place], [address], 08/05/2025 11:53:19 Referral dermatolo gist referral 2024 [facility], [address], [place], [address], 08/05/2025 11:55:58 Procedures None recorded. Surgeries None recorded. Imaging None recorded. Medication Orders hydrocort isone 2.5 % topical cream with perineal applicato r 2024 [facility]armacy #[id number], [address] [place], [address], 08/05/2025 11:51:37 Patient TargetsNo targets recorded. 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 Referring Physician: Bernard Wahl, Internal Medicine, Encounter Date: 08/05/2025 Problems Name Problem SNOMED Code Status Onset Date Resolution Date Notes Provider Name and Address Organization Details Recorded Time Hypercho lesterol emia 92722015 Completed 201703/23/2025 Bernard Wahl, DO [address] [place], [address], [place] [facility] 05/21/202 5 10:27:39 Anxiety 06749261 Active 2017 [facility] 8 15:58:05 History of depressi on 533993785 Active 2017 estes [facility] 8 15:58:19 Osteoart hritis 090663358 Active 2017 hands etc. 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 , Thoracic hyperkyp hosis and scoliosi s with PT [facility] 8 16:00:24 Prostate specific antigen above referenc e range 257003165 Active 2017 [facility] 8 16:01:43 Gastroes ophageal reflux disease 200523046 Active 2017 [facility] 8 16:01:51 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 ) [facility] 8 16:05:19 Fatigue 32009603 Active 2017 [facility] 8 16:05:44 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) [facility] 8 16:12:56 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 84068391 Active 2017 [facility] 8 16:13:13 Degenera tion of lumbar interver tebral disc 90907937 Active 2017 [facility]gina [facility] 8 16:13:21 Disorder of lung 89641192 Active 2017 incident al stable post inflamma tory lung nodules 02/01/14 and 02/15/14 [facility] 8 16:14:23 Hypothyr oidism 68379130 Active 2017 Bernard Wahl DO [address] [place] [address], [address], [facility] 5 11:46:36 Anemia 733784694 Active 2017 [facility] 8 16:14:40 Shoulder joint pain 076099849 Active 2017 Bernard Walh, DO [address] [place] [address], [address], [facility] 8 12:32:19 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 2322908780 3052149 Active 2021 Bernard Wahl DO [address] [place] [address], [address], [facility] 2 13:49:45 Bursitis of left hip 332710387 Active 2021 Bernard Wahl DO [address] [place] [address], [address], [facility] 2 13:50:03 Iron deficien cy anemia 25724652 Active 2023 Bernard Wahl DO [address] [place] [address], [address], [facility] 5 11:46:48 Onychomy cosis of toenails 272552570 Active 2024 Bernard Wahl DO [address] [place] [address], [address], [facility] 5 10:30:17 Chronic constipa tion 039734641 Active 2024 Bernard Wahl DO [address] [place] [address], [address], [facility] 5 11:50:07 Bleeding hemorrho ids 75296733 Active 2024 Bernard Wahl, [address] [place] [address], [address], [facility] 11:50:30 Internal hemorrho ids grade I 560272461 Active 2024 Bernard Wahl [address] [place] [address], [address], [facility] 11:50:51 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 Procedures Surgical History Date Name Laterality Status Provider Name and Address Organization Details Recorded Time 018 Colonoscopy completed Christina Noriega [facility] 10/09/2018 08:38:14 018 Corticosteroid Injection completed Bernard HernandezSuyapa Wahl DO [address] [place] [address], [address], [facility] 10/02/2018 12:31:53 Imaging Results None [...] ne) 50 mcg/actuat ion nasal spray,susp ension [place] 2 sprays every day by intranas al route. active Not Available Not Available No t Available Linzess 72 mcg capsule 03/11 completed Not Available Not Available Not Available Fluad Quad 5372-0359( 65yr up)(PF) 60 mcg (15 mcg x 4)/0.5mL IM syringe PHARMACY ADMINIST ERED 11/06 completed Not Available Not Available Not Available Vitals Date Recorded Body weight Oxygen saturation Oxygen saturation in Arterial blood by Pulse oximetry Heart rate Systolic And Diastolic Provider Name and Address Organization Details Last Updated DateTime 5 07226.1 5 g 99 % 99 % 73 /min 110/70 mm[Hg] [facility] 5 11:29:07 Social History Question Answer Notes LastModified by Organizat ion Details LastModified Time Tobacco Smoking Status Never Smoker Not Available [facility] 09/05[facility]2020 03:36:24 What Was The Date Of [...] mcg/0.3 mL dose 1 completed Not Available [facility] 04/22/2023 14:23:30 COVID-19, mRNA, LNP-S, PF, 30 mcg/0.3 mL dose 1 completed Not Available [facility] 04/22/2023 14:23:30 COVID-19, mRNA, LNP-S, PF, 30 mcg/0.3 mL dose 1 completed Not Available [facility] 04/22/2023 14:23:30 Td(adult) unspecified formulation 6 completed Not Available [facility] 04/22/2023 14:23:30 Pneumococcal conjugate PCV 13 5 completed Not Available [facility] 04/22/2023 14:23:30 zoster live 9 completed Not Available [facility] 04/22/2023 14:23:30 Influenza, split virus, quadrivalent, preservative 8 completed Not Available [facility] 04/22/2023 14:23:30 influenza, unspecified formulation 4 completed Bernard Wahl, DO [address] [facility], [place], [address], [facility] 09/24/2024 11:47:41 SARS-COV-2 (COVID-19) vaccine, UNSPECIFIED 5 completed Alissa mcdaniels [facility] 04/20/2025 08:32:24 Influenza, split virus, quadrivalent, preservative 9 completed Not Available [facility] 04/22/2023 14:23:30 Influenza, split virus, quadrivalent, preservative 0 completed Not Available [facility] 04/22/2023 14:23:29 Past Encounters Encounter ID Performer Location Encounter Start Date Encounter Closed Date Diagnosis/Indication Diagnosis SNOMED-CT Code Diagnosis ICD10 Code Diagnosis IMO Codes Diagnosis Note [id number] DO Yamila Badillo Internal [facility] [address] [facility],[place] [address] 08/05/2025 11:15:12 08/05/2025 11:57:39 Depression screening 203343547 Z13.31 neg anxious ryan with driving Hypothyroidism 70061662 E03.9 tsh is 2.5 last octob rech lab next month Impaired f asting glycemia 480550260 R73.01 will rechk lab but no evidence of DM Iron defic iency anemia 06536362 D50.9 Chronic constipation 236 494188 K59.09 954778 will increase water and also try miralax cont stool softener and fibercon Bleeding hemorrhoids 515 49721 K64.9 4319 Basal cell carcinoma of face 836057629 C44.567 6172959 Health Concerns Section Related Observation LastModified by Organization Detai ls LastModified Time None Recorded Concern Status LastModified by Organization Details LastModified Time None Recorded Payers Encounter Date Sequence Insurance Name Policy Number Policy Licona Covered Member ID Licona Member ID Guarantor Name 08/05/2025 1 [place] [employer] Kade Terrell [id number] Kade Terrell 08/05/2025 2 [place] [id number] Kade Terrell [id number] Kade Terrell Notes Date Note Type Note Provider Name a nd Address Organization Details Recorded Time 5 text/html ROS as noted in the HPI relates here for few thingsstates less steady on feet not fallinghas been forgetful and is word searchinghe has a good memory overall but conversation is sometimes difficult due to the word searchingrelates had a great vacation [facility] no sob has been troubled with constipation Bernard Wahl DO [address] [place], [address], [facility] 08/05/2025 11:57:37
--- OUTSIDE RECORDS SUMMARY | 2025-08-05 12:58 | XMS_ITS | Encounter Summary ---
Author Organization [facility] Address [address] [place] [address] Phone Care Team Providers Care Food Counter Worker Name Role Phone Bernard Araiza DO Primary Care Provider Encounter Details Date Type Department Care Team (Late st Contact Info) Description 09/29/2018 Ancillary Orders Virtual Department [address] [place] [address] Bernard Araiza DO [address] [place] [address] [email or web address] Shoulder pain, unspecified chronicity, unspecified laterality Social [...] on file documented as of this encounter Results * XR SHOULDER 2 VIEWS (BILATERAL) (09/29/2018 11:20 AM EST) Anatomical Region Laterality Modality Shoulder Left Radiographic Amanda ging 09/29/2018 11:4 4 AM EST Impressions 09/29/2018 11:46 AM EST Mild right glenohumeral joint osteoarthritic arthritis. POS - [id number] Narrative 09/29/2018 11:46 AM EST HISTORY: As above. No trauma. COMPARISON: None. BILATERAL SHOULDER RADIOGRAPH FINDINGS: 8 views obtained. No fracture or malalignment. Mild right glenohumeral joint space narrowing. Small degenerative cysts in the humeral heads bilaterally. No destructive bone lesions or AVN. No rotator cuff calcifications. Imaged lungs are clear. Procedure Note Hafsa Vance MD - 09/29/2018 HISTORY: As above. No trauma. COMPARISON: None. BILATERAL SHOULDER RADIOGRAPH FINDINGS: 8 views obtained. No fracture or malalignment. Mild right glenohumeraljoint space narrowing. Small degenerative cysts in the humeral headsbilaterally. No destructive bone lesions or AVN. No rotator cuffcalcifications. Imaged lungs are clear. IMPRESSION: Mild right glenohumeral joint osteoarthritic arthritis. POS - [id number] Bernard Araiza DO IMG XR UPPER EXTREMITY Final Res ult documented in this encounter Visit Diagnoses Diagnosis Shoulder pain, unspecified chronicity, unspecified laterality Shoulder pain, unspecified chronicity, unspecified laterality documented in this encounter Care Teams Food Counter Worker Relationship Specialty Start Date End Date Bernard Araiza DO [email or web address] PCP - General 11/06/17 documented as of this encounter Additional Source Comments The information contained in this document represents components of the legal health record. It is not the complete legal health record.[facility]
--- OUTSIDE RECORDS SUMMARY | 2025-08-05 12:58 | XMS_ITS | Encounter Summary ---
Author Organization [facility] Address [address] [place] [address] Phone Care Team Providers Care Backshoe Person Name Role Phone Bernard Araiza DO Primary Care Provider [phone] Encounter Details Date Type Department Care Team (Late st Contact Info) Description 10/08/2018 Procedure Pass [facility] Endoscopy Admitting Dept Virtual Department [address] [place] [address] Social History Tobacco Use Types Packs/Day Years [...] on filedocumented in this encounter Care Teams Backshoe Person Relationship Specialty Start Date End Date Bernard Araiza DO PCP - General 11/06/17 documented as of this encounter Additional Source Comments The information contained in this document represents components of the legal health record. It is not the complete legal health record.[facility]
--- OUTSIDE RECORDS SUMMARY | 2025-08-05 12:58 | XMS_ITS | Encounter Summary ---
Author Organization [facility] Address [address] [facility] [address] [place] [address] Phone Care Team Providers Care Nuclear Technician Name Role Phone Bernard Araiza DO Primary Care Provider [phone] Encounter Details Date Type Department Care Team ([facility] st Contact Info) Description 09/28/2018 Ancillary Orders Virtual Department [address] [place] [address] Bernard Araiza DO [address] [place] [address] [email or web address] Left shoulder pain, unspecified chronicity Social History Tobacco Use Types Packs/Day Years Used Date Smoking Tobacco: Never Assessed Sex and Gender Information Value Date Recorded Sex Assigned at Not on file Legal Sex Male 10:14 PM EDT Gender Identity Not on file Sexual Orientation Not on file documented as of this encounter Plan of Treatment Not on file documented as of this encounter Visit Diagnoses Diagnosis Left shoulder pain, unspecified chronicity documented in this encounter Care Teams Nuclear Technician Relationship Specialty Start Date End Date Bernard Araiza DO PCP - General 11/06/17 documented as of this encounter Additional Source Comments The information contained in this document represents components of the legal health record. It is not the complete legal health record.[facility]
--- OUTSIDE RECORDS SUMMARY | 2025-08-05 12:58 | XMS_ITS | Encounter Summary ---
Author Organization [facility] Address [address] [facility] [address] [place] [address] Phone Care Team Providers Care Retail Specialist Name Role Phone Bernard Araiza DO Primary Care Provider [phone] Encounter Details Date Type Department Care Team (Latest Contact Info) Description 01/18/2019 Transcribe Orders [facility] Laboratory [address] [address] Jamal Mcgrath MD [address] [place] [address], [address] [address] [email or web address] Elevated prostate specific antigen (PSA) (Primary Dx) Social History Tobacco Use Types Packs/Day Years [...] documented as of this encounter Results * (ABNORMAL) PSA (screening) (01/18/2019 9:00 AM EDT) PSA 9.25(H) 0 - 4.00 ng/mL [facility] Blood 01/18/2019 9:00 AM EDT 01/18/2019 9:03 AM EDT us Jamal Mcgrath MD LAB BLOOD ORDERABLES Final Res ult [facility] [address] [place] [address] documented in this encounter Visit Diagnoses Diagnosis Elevated prostate specific antigen (PSA)- Primary documented in this encounter Care Teams Retail Specialist Relationship Specialty Start Date End Date Ceealejandra Bernard DO Mary [email or web address] PCP - General 11/06/17 documented as of this encounter Additional Source Comments The information contained in this document represents components of the legal health record. It is not the complete legal health record.[facility]
--- OUTSIDE RECORDS SUMMARY | 2025-08-05 12:58 | XMS_ITS | Encounter Summary ---
Author Organization [facility] Address [address] [place] [address] Phone Care Team Providers Care Used Car Lot Attendant Name Role Phone Bernard Araiza DO Primary Care Provider [phone] Encounter Details Date Type Department Care Team (Late st Contact Info) Description 08/07/2022 Procedure Pass [place] Admitting Dept - Virtual Department [address] [place] [address] Social History Tobacco Use Types Packs/Day Years [...] on filedocumented in this encounter Care Teams Used Car Lot Attendant Relationship Specialty Start Date End Date Bernard Araiza DO PCP - General 11/06/17 documented as of this encounter Additional Source Comments The information contained in this document represents components of the legal health record. It is not the complete legal health record.[facility]
--- OUTSIDE RECORDS SUMMARY | 2025-08-05 12:58 | XMS_ITS | Encounter Summary ---
Author Organization [facility] Address [address] [address] Phone Care Team Providers Care Arts Manager Name Role Phone Bernard Araiza DO Primary Care Provider [phone] Reason for Referral * Physical Therapy (Routine) - Closed Specialty Diagnoses / Procedures Referred By Gricelda dawkins Referred To Contact Physical Therapy Diagnoses Encounter for rehabilitation System, Provider Not In, PhD [address] [place] [address] [address] [place] [address] Phone: tel: Referral ID Status Reason Start Date Expiration Date Visits Re quested Visits Authorized [id number] Closed 03/11/2019 03/11/2020 1 1 Encounter Details Date Type Department Care Team (Late st Contact Info) Description 03/11/2019 Transcribe Orders [facility] [address] [place] [address] Bernard Araiza DO [address] [facility] [place] [address] [email or web address] Encounter for rehabilitation (Primary Dx) Social History Tobacco Use Types [...] as of this encounter Plan of Treatment Scheduled Referrals Name Type Priority Associated Diagnoses Orde r Schedule Ambulatory referral to [facility] Physical Therapy Outpatient Referral Routine Encounter for rehabilitation Ordered: 03/11/2019 documented as of this encounter Visit Diagnoses Diagnosis Encounter for rehabilitation- Primary documented in this encounter Care Teams Arts Manager Relationship Specialty Start Date End Date Bernard Araiza DO [email or web address] PCP - General 11/06/17 documented as of this encounter Additional Source Comments The information contained in this document represents components of the legal health record. It is not the complete legal health record.[facility]
--- OUTSIDE RECORDS SUMMARY | 2025-08-05 12:58 | XMS_ITS | Clinical Summary ---
Author Organization [facility] Address [address] [place] [id number] Phone Care Team Providers Care Chicken Vaccinator Name Role Phone CeealejandraBernard DO Primary Care Provider [phone] Allergies No known active allergies Medications ascorbic acid, vitamin C, (VITAMIN C) 1000 MG tablet Take 1 tablet by mouth daily. Active omeprazole (PRILOSEC) 40 MG capsule 1 capsule Orally Once a day Active tamsulosin (FLOMAX) 0.4 mg Cp24 1 capsule 30 minutes after the same meal each day Orally Once a day Active temazepam (RESTORIL) 15 mg capsule Take 1 capsule by mouth nightly as needed. Active buPROPion (WELLBUTRIN SR) 200 MG SR 12 hr tablet Take 1 tablet by mouth daily. Active pravastatin (PRAVACHOL) 40 MG tablet Take 1 tablet by mouth daily. 03/12/20 11 Active CITALOPRAM HYDROBROMIDE (CITALOPRAM ORAL) Active multivitamin with minerals tablet as directed Orally Active celecoxib (CELEBREX) 100 MG capsule TAKE 1 CAPSULE BY MOUTH TWICE A DAY NEEDED 03/18/20 22 Active levothyroxine (SYNTHROID, LEVOTHROID) 50 MCG tablet levothyroxine 50 mcg tablet TAKE 1 TABLET BY MOUTH EVERY DAY Active fluticasone propionate (FLONASE) 50 mcg/actuation nasal spray daily. Active Active Problems Problem Noted Date Diagnosed Date Encounter for preoperative s creening laboratory testing for COVID-19 virus Social History Tobacco Use Types Packs/Day Years Used Date Smoking Tobacco: Never Smokeless Tobacco: Never Tobacco Cessation:Counseling Given: Not Answered Alcohol Use Standard Drinks/Week Comments No 0 (1 standard drink = 0.6 oz pur e alcohol) Education Answer Date Recorded Are you interested in more education? Not on fabiana e 02/28/2023 Are you concerned about learning? Not on file 02/28/2023 No 02/28/2023 No 02/28/2023 Digital Access Answer Date Recorded No 03/31/2023 No 03/31/2023 Reliable internet access at home? Not on file 03/31/2023 Device with a working camera? Not on file Sex and Gender Information Value Date Recorded Sex Assigned at Not on file Legal Sex Male 10:14 PM EDT Gender Identity Not on file Sexual Orientation Not on file Last Filed Vital Signs Vital Sign Reading Time Taken Comments Blood Pressure 122/83 04/22/2023 1:42 PM EDT Pulse 67 04/22/2023 1:42 PM EDT Temperature 36.6 C (97.9 F) 04/22/2023 1:42 PM EDT Respiratory Rate 18 04/22/2023 1:42 PM EDT Oxygen Saturation 98% 04/22/2023 1:42 PM EDT Inhaled Oxygen Concentration - - Weight 68 kg (150 lb) 04/22/2023 1:42 PM EDT Height 172.7 cm (5' 8 ) 08/05/2022 1:14 PM EDT Body Mass Index 22.81 08/05/2022 1:14 PM EDT Plan of Treatment Health Maintenance Due Date Last Done Comments DEPRESSION SCREENING 1947 RSV VACCINE (1 - 1-dose 75+ series) 2012 TSH LEVEL 02/20/2020 02/19/2019 INFLUENZA VACCINE (#1) 2025 , 08/24/2021, 07/08/2020, Additional history exists COVID-19 VACCINE ( season) 2025 03/03/2023, 08/14/2022, 05/13/2022, Additional history exists Adult Td,Tdap Booster 08/30/2026 08/30/2016, 016 PNEUMOCOCCAL VACCINES (50+ years) Completed 08/30/2016, 08/15/2015 ZOSTER VACCINES Completed 03/03/2023, 03/0 04/2023, 08/08/2009 HEPATITIS A VACCINES Aged Out No long er eligible based on patient's age to complete this topic HIB VACCINES Aged Out No longer eligi ble based on patient's age to complete this topic MENINGOCOCCAL VACCINES (ACWY) Aged Out No longer eligible based on patient's age to complete this topic MENINGOCOCCAL VACCINES (B) Aged Out N o longer eligible based on patient's age to complete this topic Medical Devices Implanted Type Area Retail Furniture Sales Device Identifier Shelf Expiration Date Model / Serial / Lot [place] Suture Size 0 [id number] [id number] Arthroscopy Quick Double Arm Mini - [id number] Implanted:Qty: 1 on 08/07/2022 by Eva Coello MD at [facility] Right: Hand [employer] 09/02/2026 [id number] / / [id number] Screw Bone 6x30mm Compression Ss Metacarpal Lg - [id number] Implanted:Qty: 1 on 08/07/2022 by Eva Coello MD at [facility] Right: Hand [employer] [id number] / / Screw Bone 4x28mm Sm Hallu Metatarsal Solid Lag - [id number] Implanted:Qty: 1 on 08/07/2022 by Eva Coello MD at [facility] Right: Hand [employer] [id number] / / Procedures Procedure Name Priority Date/Time Associated Diagnosis Comments TSH WITH REFLEX Routine 02/19/2019 9:48 AM EDT Myxedema heart disease from Last 3 Months or Most Recently Relevant to Health Maintenance Results * TSH with reflex (02/19/2019 9:48 AM EDT) TSH 3.47 0.27 - 4.20 uIU/mL [facility] Blood 02/19/2019 9:48 AM EDT 02/19/2019 9:51 AM EDT us Bernard A Bigda DO LAB BLOOD ORDERABLES Final Resul t [facility] [address] [place] [address] from Last 3 Months or Most Recently Relevant to Health Maintenance Insurance MEDICARE PART A & B [employer] SUPPLEMENT MEDICARE PART A & B [employer] SUPPLEMENT MEDICARE PART A & B [employer] SUPPLEMENT MEDICARE PART A & B [employer] MED[employer] SUPPLEMENT MEDICARE PART A & B [employer] MEDEX SUPPLEMENT MEDICARE PART A & B [employer] MEDEX SUPPLEMENT MEDICARE PART A & B [employer] MED[employer] SUPPLEMENT MEDICARE PART A & B [employer] MEDEX SUPPLEMENT MEDICARE PART A & B [employer] MEDEX SUPPLEMENT Care Teams Chicken Vaccinator Relationship Specialty Start Date End Date Bernard Araiza DO PCP - General 11/06/17 Additional Source Comments The information contained in this document represents components of the legal health record. It is not the complete legal health record.[facility]
--- OUTSIDE RECORDS SUMMARY | 2025-08-05 12:58 | XMS_ITS | Encounter Summary ---
Author Organization [facility] Address [address] [place] [phone] Phone Care Team Providers Care Derrick Engineer Name Role Phone Bernard Araiza DO Primary Care Provider [phone] Encounter Details Date Type Department Care Team (Latest Contact Info) Description 01/14/2018 Transcribe Orders [facility] Laboratory [address] [address] Jamal Mcgrath MD [address] [place] [address], [address] [address] [email or web address] Elevated prostate specific antigen (PSA) (Primary Dx) [...] this encounter Results * (ABNORMAL) PSA (screening) (01/14/2018 9:40 AM EDT) PSA 9.21(H) 0 - 4.00 ng/mL [facility] Blood 01/14/2018 9:40 AM EDT 01/14/2018 9:44 AM EDT us Jamal Mcgrath MD LAB BLOOD ORDERABLES Final Res ult [facility] [address] [place] [address] documented in this encounter Visit Diagnoses Diagnosis Elevated prostate specific antigen (PSA)- Primary documented in this encounter Care Teams Derrick Engineer Relationship Specialty Start Date End Date TeodoraBernard DO Mary [email or web address] PCP - General 11/06/17 documented as of this encounter Additional Source Comments The information contained in this document represents components of the legal health record. It is not the complete legal health record.[facility]
[2025-08-05 18:10] LABS: MANUAL DIFF FLAG NO
[2025-08-05 18:39] LABS: Hematocrit 40.2 % (42.0-52.0); Hemoglobin 13.4 g/dl (14.0-18.0); Imm Gran Abs Auto 0.01 X10*3/uL (0.00-0.03); Imm Gran Pct Auto 0.2 % (0.0-0.4); Lymphocytes Absolute Auto 0.8 X10*3/uL (1.2-4.9); Mean Corpuscular HGB Conc 33.3 g/dl (31.0-36.0); Mean Corpuscular Hemoglobin 31.2 pg (27.0-33.0); Mean Corpuscular Volume 93.5 fL (80.0-98.0); NRBC Abs Auto 0.000 X10*3/uL (0.0-0.012); NRBC Pct Auto 0.0 /100WBC (0.0-0.2); Platelet Count 249 X10*3/uL (160-400); Red Blood Count 4.30 X10*6/uL (4.60-5.80); White Blood Count 4.3 X10*3/uL (4.8-10.8)
[2025-08-05 18:40] LABS: Alanine Aminotransferase 21 U/L (0-40); Albumin Level 4.2 g/dL (3.5-5.0); Alkaline Phosphatase 64 U/L (39-117); Anion Gap 10 (12-20); Aspartate Amino Transferase 22 U/L (5-37); Blood Urea Nitrogen 23 mg/dL (9-16); Calcium 9.2 mg/dL (8.4-10.2); Carbon Dioxide 30 mmol/L (22-29); Chloride 104 mmol/L (96-108); Estimated Glomerular Filt Rate > 60; Iron 136 mcg/dL (45-160); Percent Iron Saturation 56 % (15-50); Potassium 4.9 mmol/L (3.3-5.1); Sodium 139 mmol/L (135-145); Total Iron Binding Capacity 242 mcg/dL (228-428); Total Protein 6.9 g/dL (6.5-8.0); Unsaturated Iron Binding 106 ug/dL
[2025-08-05 18:57] LABS: Ferritin 277 ng/mL (20-250)
== END 2025-08-05 12:04 | disposition home or self-care (01) ==
LOC: HO.MANLDS 12:03
PROVIDERS: Visit Provider Internal Medicine
DX: E03.9 Hypothyroidism, unspecified (principal); D50.9 Iron deficiency anemia, unspecified
CPT/HCPCS: 36415; 80053; 82728; 83540; 84443; 85025